=== PATIENT | female | born 1985 | race Caucasian/White ===

== ENCOUNTER 2017-05-13 14:44 | Emergency (ER) | payer MEDICAID, OTHER ==
[2017-05-13 15:22] VITALS: BP 127/76; PULSE 100; RESP 18; TEMP 98; O2SAT 99
--- NOTE | 2017-05-13 15:28 | ED PDOC ---
Lower Extremity Pain/Injury Time Seen by Provider: 05/13/17 14:46 Chief Complaint (Nursing): Lower Extremity Problem/Injury Chief Complaint (Provider): Leg Pain History Per: Patient Additional Complaint(s): 32 yo female, no PMH, presents to ED with complaints of left groin pain, pelvic pain and mild vaginal discharge ever since having unprotected sex on night. No fever or chills. no significant back pain. Pt notes having IUD placed in November Past Medical History Reviewed: Nursing Documentation, Vital Signs Vital Signs: Last Vital Signs Temp 98 F 05/13/17 15:20 Pulse 100 H 05/13/17 15:20 Resp 18 05/13/17 15:20 BP 127/76 05/13/17 15:20 Pulse Ox 99 05/13/17 15:20 - Medical History PMH: No Chronic Diseases - Surgical History Surgical History: No Surg Hx - Family History Family History: States: Unknown Family Hx - Home Medications Home Medications: Ambulatory Orders Medication Instructions Recorded Ciprofloxacin/Ciprofloxa HCl 500 mg PO BID #14 tab 04/12/16 [Ciprofloxacin] Phenazopyridine HCl [Pyridium] 200 mg PO TID PRN #10 tablet 04/12/16 - Allergies Allergies/Adverse Reactions: Allergies Allergy/AdvReac Type Severity Reaction Status Date / Time Penicillins Allergy unknown Verified 11/30/15 21:50 Sulfa (Sulfonamide Allergy ITCHING Verified 11/30/15 21:50 Antibiotics) Review of Systems ROS Statement: Except As Marked, All Systems Reviewed And Found Negative Gastrointestinal: Positive for: Abdominal Pain Genitourinary Female: Positive for: Vaginal Discharge Physical Exam - Reviewed Nursing Documentation Reviewed: Yes Vital Signs Reviewed: Yes - Physical Exam Appears: Positive for: Well, Non-toxic, No Acute Distress Head Exam: Positive for: ATRAUMATIC, NORMAL INSPECTION, NORMOCEPHALIC Skin: Positive for: Normal Color, Warm, DRY Eye Exam: Positive for: EOMI, Normal appearance, PERRL ENT: Positive for: Normal ENT Inspection Neck: Positive for: Normal, Painless ROM Cardiovascular/Chest: Positive for: Regular Rate, Rhythm Respiratory: Positive for: CNT, Normal Breath Sounds Gastrointestinal/Abdominal: Positive for: Bowel Sounds, Soft, Tenderness (muld suprapubic) Pelvic Exam: Positive for: External Exam Normal, Bimanual Exam Normal, No Masses , Discharge ((+) thik white vaginal discharge adherant to vaginal ramirez). Negative for: Blood, Cervicitis, Lesions, Mass, Tender W/Cervical Motion, Tender Adnexa, Tender Uterus Back: Positive for: Normal Inspection Extremity: Positive for: Normal ROM Neurologic/Psych: Positive for: Alert, Oriented - ECG O2 Sat by Pulse Oximetry: 99 Medical Decision Making Medical Decision Making: Dip (+) blood, (-) leuks or nites Preg (-) IMPRESSION: IUD remians in place, unremarkable pelvic ultrasound. Pt educated on all results and demonstrated full understanding GC/C cultures obtained and sent Pt advised that physical exam findings suggest yeast infection. Given RX for diflucan PO Advised to follow up with [facility], return to ED with any concerns Disposition - Clinical Impression Clinical Impression: Vaginal candidiasis - Patient ED Disposition Is Patient to be Admitted: No - Disposition Disposition: Routine/Home Disposition Time: 17:05 Condition: STABLE Forms: [facility] (Bulgarian) - POA Present On Arrival: None
--- NOTE | 2017-05-13 16:29 | US ---
HISTORY: Pelvic pain COMPARISON: None available. TECHNIQUE: Transabdominal and transvaginal pelvic ultrasound was performed. FINDINGS: UTERUS: Measures 8.2 x 4.6 x 4.1 cm. Anteverted, normal in size and appearance. No fibroid or other mass lesion seen. ENDOMETRIUM: Measures 5.0 mm in diameter. IUD remains in place. CERVIX: There are multiple nabothian cysts . RIGHT OVARY: Measures 3.4 x 3.0 x 1.9 cm. No solid mass. Normal flow. There is a 2.0 x 1.6 x 1.7 cm simple cyst. LEFT OVARY: Surgically absent. FREE FLUID: No significant free fluid noted. OTHER FINDINGS: None. IMPRESSION: IUD remians in place, unremarkable pelvic ultrasound.
== END 2017-05-13 17:22 | disposition home or self-care (01) ==
LOC: H.ER 14:44
DX: B37.3 Candidiasis of vulva and vagina (principal); Z88.0 Allergy status to penicillin

== ENCOUNTER 2017-06-22 15:25 | Emergency (ER) | payer MEDICAID ==
[2017-06-22 15:39] VITALS: BP 132/87; PULSE 89; RESP 16; TEMP 99.1; O2SAT 98
[2017-06-22] MEDS ORDERED: cefTRIAXone (Rocephin) 250 mg Inj IM ONE (16:13)
[2017-06-22] MEDS ORDERED: Sterile Water 10 ML IV ONE (17:22)
[2017-06-22] MEDS ORDERED: cefTRIAXone (Rocephin) 250 mg Inj ONE (17:23)
== END 2017-06-22 18:52 | disposition home or self-care (01) ==
LOC: H.ER 15:25
DX: A54.9 Gonococcal infection, unspecified (principal)
CPT/HCPCS: 81025; 87070; 87086; 87430; 87491; 87591; 96372; 99283; J0696

== ENCOUNTER 2017-10-05 02:57 | Emergency (ER) | payer MEDICAID ==
[2017-10-05 03:11] VITALS: RESP 16; TEMP 97.7; O2SAT 98
[2017-10-05] MEDS ORDERED: Lidocaine 1% w Epi 1:100,000 Inj IJ ONE (03:24)
[2017-10-05] MEDS ORDERED: Lidocaine 2% w Epi 1:100,000 Inj IJ ONE (03:27)
--- NOTE | 2017-10-05 03:27 | ED PDOC ---
HPI: Wound Care - HPI Time Seen by Provider: 10/05/17 03:15 Chief Complaint (Nursing): Abnormal Skin Integrity Chief Complaint (Provider): fall History Per: Patient History Of Present Illness: 32 y/o female ambulates to ED for evaluation of fall prior to arrival. Patient states she slipped on ice, landed on right knee. Patient reports pain and cut to right knee, right ankle, right foot. Denies head injury, numbness/weakness right lower extremity, limitation of movement. Tetanus vaccine not up to date Past Medical History Reviewed: Historical Data, Nursing Documentation, Vital Signs Vital Signs: Last Vital Signs Temp 97.7 F 10/05/17 03:06 Pulse 89 10/05/17 03:06 Resp 16 10/05/17 03:06 BP 118/32 L 10/05/17 03:06 Pulse Ox 98 10/05/17 03:06 - Medical History PMH: No Chronic Diseases - Surgical History Surgical History: No Surg Hx - Family History Family History: States: Unknown Family Hx - Home Medications Home Medications: Ambulatory Orders Medication Instructions Recorded Ciprofloxacin/Ciprofloxa HCl 500 mg PO BID #14 tab 04/12/16 [Ciprofloxacin] Phenazopyridine HCl [Pyridium] 200 mg PO TID PRN #10 tablet 04/12/16 Fluconazole [Diflucan] 150 mg PO ONCE #1 tab 05/13/17 Doxycycline Monohydrate 100 mg PO BID #14 capsule 06/22/17 Ibuprofen [Motrin Tab] 1 tab PO Q6 PRN #20 tab 10/05/17 - Allergies Allergies/Adverse Reactions: Allergies Allergy/AdvReac Type Severity Reaction Status Date / Time Penicillins Allergy unknown Verified 06/22/17 15:36 Sulfa (Sulfonamide Allergy ITCHING Verified 06/22/17 15:36 Antibiotics) Review of Systems ROS Statement: Except As Marked, All Systems Reviewed And Found Negative Musculoskeletal: Positive for: Leg Pain (right knee, right lower leg), Foot Pain (right ankle, right foot) Physical Exam - Reviewed Nursing Documentation Reviewed: Yes Vital Signs Reviewed: Yes - Physical Exam Appears: Positive for: Well, Non-toxic, No Acute Distress Head Exam: Positive for: ATRAUMATIC, NORMAL INSPECTION, NORMOCEPHALIC Skin: Positive for: Normal Color ENT: Positive for: Normal ENT Inspection Cardiovascular/Chest: Positive for: Regular Rate, Rhythm Respiratory: Positive for: Normal Breath Sounds Pulses-Dorsalis Pedis (L): 2+ Pulses-Dorsalis Pedis (R): 2+ Pulses-Post. Tibialis (L): 2+ Pulses-Post. Tibialis (R): 2+ Extremity: Positive for: Normal ROM, Tenderness (anterior/inferior right knee, dorsal/lateral right foot. No obvious swelling, deformity noted. Distal NV, motor intact), Capillary Refill (<2 sec b/l LE), Other (4cm horizontal laceration just inferior to right patella. Abrasion left knee) Neurologic/Psych: Positive for: Alert, Oriented. Negative for: Motor/Sensory Deficits - ECG O2 Sat by Pulse Oximetry: 98 - Other Rad right foot xray X-Ray: Viewed By Nh X-Ray Interpretation: no acute findings right ankle xray X-Ray: Viewed By Nh X-Ray Interpretation: no acute findings right tib/fib xray X-Ray: Viewed By Nh X-Ray Interpretation: no acute findings right knee xray X-Ray: Viewed By Nh X-Ray Interpretation: no acute findings Procedure: Wound Repair - Time Performed Time Performed: 04:20 - Time Out Time Out: Side verified, Site verified, Patient ID confirmed, Sterile procedures obs. - Consent Obtained Consent obtained: Verbal - Performed by Performed by: Mid-level Provider - Indications Indication(s):: Laceration - Location Location:: Right, Knee Shape:: Linear Dimensions Length cm: 3cm Dimensions width cm: 0.5cm Depth:: Epidermis - Anesthetic Technique Local/Regional Anesthetic:: Lidocaine 2% w/epi - Debris Debris:: None - Irrigated Irrigated with ml of normal saline: 250mL - Complexity Complexity:: Simple (one layer) - Wound repair method Sutures:: # (6), Size (4'0), Type (nonabsorbable), Technique (interrupted) - Muscle repiar layer closed with Muscle repair layer closed with:: Wound well approximated, Abx ointment applied , Dressing applied, Tetanus ordered - Patient tolerated procedure Patient Tolerated Procedure:: Well Medical Decision Making Medical Decision Making: Patient educated on wound care, suture removal 8-10 days. Educated on RICE. Rx Ibuprofen given. Follow up PMD 2-3 days Return precautions given Disposition - Clinical Impression Clinical Impression: Laceration of knee, Right ankle injury - Patient ED Disposition Is Patient to be Admitted: No Counseled Patient/Family Regarding: Studies Performed, Diagnosis, Need For Followup - Disposition Referrals: Gibson Lutz, AMY, SR. MANAGER [Primary Care Provider] - Disposition: Routine/Home Disposition Time: 04:43 Condition: IMPROVED Additional Instructions: Suture removal in 8-10 days. Ice, elevate affected areas Return to ED for worsening/concerning symptoms. Prescriptions: Ibuprofen [Motrin Tab] 1 tab PO Q6 PRN #20 tab PRN Reason: Pain, Moderate (4-7) Instructions: Laceration (ED), Care For Your Stitches (ED), Arthralgia (ED), RICE Therapy (ED) Forms: [employer] (Welsh)
[2017-10-05 05:32] VITALS: BP 106/59; PULSE 80
--- NOTE | 2017-10-05 14:59 | RAD ---
PROCEDURE: Right Knee Radiographs. HISTORY: fall, pain COMPARISON: None. FINDINGS: BONES: Normal. No fracture. JOINTS: Normal. No osteoarthritis. JOINT EFFUSION: None. OTHER FINDINGS: None. IMPRESSION: Normal radiographs of the right knee.
--- NOTE | 2017-10-05 15:00 | RAD ---
PROCEDURE: Radiographs of the right tibia and fibula. HISTORY: fall, pain COMPARISON: None available. TECHNIQUE: Frontal and lateral views obtained. FINDINGS: BONES: No fracture or destructive lesion. JOINT SPACES: Unremarkable. OTHER FINDINGS: None. IMPRESSION: Unremarkable radiographs of the right tibia and fibula.
--- NOTE | 2017-10-05 15:01 | RAD ---
PROCEDURE: Right Ankle Radiographs. HISTORY: fall, pain COMPARISON: None FINDINGS: BONES: Normal. No fracture. JOINTS: Normal. No osteoarthritis. Ankle mortise maintained. Talar dome intact SOFT TISSUES: Normal. OTHER FINDINGS: None. IMPRESSION: Normal right ankle radiographs.
--- NOTE | 2017-10-05 15:01 | RAD ---
PROCEDURE: Right Foot Radiographs. HISTORY: fall, pain COMPARISON: None. FINDINGS: BONES: Normal. No fracture. JOINTS: Normal. SOFT TISSUES: Normal. OTHER FINDINGS: None. IMPRESSION: Normal right foot radiographs.
== END 2017-10-05 05:30 | disposition home or self-care (01) ==
LOC: H.ER 02:57
DX: S81.011A Laceration without foreign body, right knee, initial encounter (principal); S80.212A Abrasion, left knee, initial encounter; Z23 Encounter for immunization; W00.0XXA Fall on same level due to ice and snow, initial encounter; Z88.0 Allergy status to penicillin